=== PATIENT | male | born 2005 | race Caucasian/White ===

== ENCOUNTER 2025-02-08 19:48 | Emergency (ER) | payer OTHER, SELFPAY ==
--- OUTSIDE RECORDS SUMMARY | 2025-02-08 19:51 | XMS_ITS | Patient Health Record ---
Author Organization [facility] Address [address] 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 Plan Of Treatment No Information Insurance Providers Payer Name Payer Address Payer Phone Subscriber Number Group Number Insured Name Patient Relationship to Insured Coverage Start Date Coverage End Date [facility] [address] [place] [phone] [id number] Eldon Urbina Self - patient is the insured Medical (General) History Medical History History ICD Code Born @ 38 weeks, 10lbs 1oz Genitourinary: Nocturnal enuresis, Testi cular torsion Surgical History Surgery Date(Month/Year) Endoscopy and colonoscopy Hospitalization History Reason Date(Month/Year) Asthma
--- OUTSIDE RECORDS SUMMARY | 2025-02-08 19:51 | XMS_ITS | Patient Health Record ---
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 Name Role Phone CatrachitaBalbir Primary Care Provider MESHA Amos Unavailable [phone] Reason For Referral No Information Medications Medication SIG (Take, Route, Fr equency, Duration) Notes Start Date End Date Status Flonase Active Singulair Active oxyBUTYnin Chloride Active Ventolin HFA Active Desmopressin Acetate Active Social History Tobacco Use: Social History Observation Description Date Details (start date - stop date) Never Smoker NA - NA Social History Tobacco Use: Social Info Question Answer Notes Tobacco use/smoking Are you a nonsmoker Additional Details Category Social Info Options Details Tobacco Use: Is the child in daycare? No Do you have any pets with hair or dander? No Problems Problem Type SNOMED Code ICD Code Onset Dates Problem Status W/U Status Risk Notes Problem Impacted cerumen (03230099) Impacted cerumen of right ear (H61.21) Active confirmed Problem Auditory processing disorder (593504684) Auditory processing disorder (H93.25) Active confirmed Plan Of Treatment No Information Insurance Providers Payer Name Payer Address Payer Phone Subscriber Number Group Number Insured Name Patient Relationship to Insured Coverage Start Date Coverage End Date [employer] [place] prior to 2023 [address] [address] [place], [place] [id number] Eldon Holloway Self - patient is the insured Medical (General) History Medical History History ICD Code Asthma Seasonal allergies Surgical History Surgery Date(Month/Year) Endoscopy, Laparoscopy 2008
[2025-02-08 19:56] VITALS: BP 129/84; PULSE 62; RESP 18; TEMP 37.3; O2SAT 100; BMI 26.7
[2025-02-08 20:31] VITALS: PULSE 81; O2SAT 100
[2025-02-08 20:45] VITALS: PULSE 76; O2SAT 96
--- NOTE | 2025-02-08 20:48 | ED.ABDPAIN ---
HPI - Abdominal Pain General Chief Complaint: Abdominal Pain Stated Complaint: stomach pain Time Seen by Provider: 02/08/25 19:49 History of Present Illness HPI narrative: This 19-year-old male was sent here from urgent care because of abdominal pain that began this morning. He states the pain was in his upper epigastric region and seemed to worsen through the day. About mid afternoon he did have 1 episode of vomiting. He states that his pain is significantly better upon arrival here. He did present urgent care and had labs and abdominal x-ray done there. He was sent here because his white count was elevated. I did not receive a phone call or information from the urgent care provider. The patient arrives here with normal vital signs and states that he is feeling much better. He has not had any fevers. Related Data Home Medications ?Medication ?Instructions ?Recorded ?Confirmed No Known Home Medications 02/08/25 02/08/25 Allergies Allergy/AdvReac Type Severity Reaction Status Date / Time No Known Drug Allergies Allergy Verified 02/08/25 19:56 Review of Systems Status of ROS Reports: 10 or more systems reviewed and unremarkable except as noted in History and below Narrative Constitutional: No fevers, no weight gain or loss. Eyes: No discharge. No vision changes. HENT: No congestion, no sore throat, no ear pain. Cardiovascular: No chest pain, no palpitations. Respiratory: No shortness of breath, no wheezes, no cough. Gastrointestinal: No diarrhea. Upper epigastric abdominal pain as described above with 1 episode of vomiting. Genitourinary: No dysuria, no hematuria. Musculoskeletal: Normal range of motion. Skin: No rashes, no pruritis. Neurological: No dizziness, weakness, sensory change, speech change. Endo/Heme/Allergies: No bruising or bleeding. No polydipsia. Pysch: no suicidality, no anxiety, no insomnia. All other systems reviewed and are negative. Exam Narrative: Exam Narrative: Constitutional: Well-developed, well-nourished, no acute distress. HEENT: Normocephalic, atraumatic. Neck: Normal range of motion. Nontender. Supple. Heart: Regular. No murmurs. Normal rate. Intact distal pulses. Lungs: Clear to auscultation. No chest discomfort. No wheezes, rhonchi, or rales. Abdomen: Normal bowel sounds. Very mild upper epigastric tenderness. No rebound tenderness. Genitalia: Deferred. Back: No midline tenderness. Normal range of motion. Extremities: Normal range of motion. No injury. Skin: Intact. No rash. Warm. No erythema or pallor. Neurologic: No altered sensation. No weakness. Alert and oriented. Psychiatric: No suicidality. No anxiety or depression. No insomnia. Nursing notes and vitals signs are reviewed. Const: Vital Signs, click to edit/add: Vital Signs - 24 hr 02/08/25 19:56 Temperature 99.1 F Pulse Rate [Pulse Oximeter] 62 Respiratory Rate 18 Blood Pressure [Ri t Upper Arm] 129/84 Pulse Oximetry 100 Oxygen Delivery Me thod Room Air Course Vital Signs Vital signs: Initial Vital Signs Temperature 99.1 F 02/08/25 19:56 Temperature Source Temporal Artery Scan 02/08/25 19:56 Pulse Rate 62 02/08/25 19:56 Respiratory Rate 18 02/08/25 19:56 Blood Pressure 129/84 02/08/25 19:56 Blood Pressure Mean 99 02/08/25 19:56 Pulse Oximetry 100 02/08/25 19:56 Oxygen Delivery Method Room Air 02/08/25 19:56 Vital Signs Temperature 99.1 F 02/08/25 19:56 Pulse Rate 62 02/08/25 19:56 Respiratory Rate 18 02/08/25 19:56 Blood Pressure 129/84 02/08/25 19:56 Pulse Oximetry 100 02/08/25 19:56 Oxygen Delivery Method Room Air 02/08/25 19:56 Temperature 99.1 F 02/08/25 19:56 Pulse Rate 62 02/08/25 19:56 Respiratory Rate 18 02/08/25 19:56 Blood Pressure 129/84 02/08/25 19:56 Pulse Oximetry 100 02/08/25 19:56 Oxygen Delivery Method Room Air 02/08/25 19:56 MDM - Abdominal Pain MDM Narrative Medical decision making narrative: This patient had abdominal pain earlier today and now this is almost completely resolved. He did have labs done at urgent care and I did review those results. Will was most notable was a white count that was elevated at 17.97. The patient arrives here with very minimal symptoms and normal vital signs. I did discuss imaging and lab options with the patient but seeing that he had normal bowel sounds and very minimal pain without rebound tenderness I stated that a CT scan is not mandatory. I did use bedside ultrasound to look at his gallbladder and upper abdomen. There is some possibility of sludging in the gallbladder but no gallbladder wall thickening or changes in the common bile duct from what I was able to observe. I did describe signs and symptoms and possible complications related to gallbladder disease but indicated that this may not be the explanation for his symptoms today. He does have an elevated white count but does not have any fever. Liver and pancreatic enzymes were ordered in the urgent care lab draw but these results are pending. Other differential diagnoses were considered such as gastroenteritis, gastritis, ulcer, reflux esophagitis, etc.. This patient is okay to return home and is instructed to return if symptoms are recurrent or worsening. I did provide a [facility] prescription for Toradol. Discharge Plan Discharge Clinical Impression: Abdominal pain Patient Disposition: Home, Self-Care Condition: Improved Additional Instructions: Continue current plans. Take medication as needed and indicated. If symptoms are recurrent or worsening returned to the emergency department. Follow up with MD otherwise as needed. Prescriptions: No Action No Known Home Medications Follow Up/Referrals: Provider,Not a Local [Primary Care Provider, Family Practice] Stand Alone Forms: [facility] Info Instructions Procedures POC Ultrasound Abdomen Limited Anatomical areas examined: Right upper quadrant and upper epigastric regions. Indications: Upper epigastric abdominal pain. Exam Type: Limited abdominal ultrasound Description/ Findings: Normal appearing liver and right kidney. Gallbladder may show some signs of sludging but no gallbladder wall thickening and common bile duct was viewed in a limited way but did appear normal. Impression: Negative exam but possibility of some sludging in the gallbladder.
[2025-02-08 21:00] VITALS: PULSE 75; O2SAT 99
== END 2025-02-08 21:05 | disposition home or self-care (01) ==
PROVIDERS: Emergency Provider Emergency Medicine Emergency Medical Services
DX: R10.9 Unspecified abdominal pain (principal)
CPT/HCPCS: 76705; 80076; 83690; 99284